=== PATIENT | male | born 1970 | race Caucasian/White ===

== ENCOUNTER → 2018-04-13 08:35 | Outpatient (CLI) | payer MEDICAID, SELFPAY ==
--- NOTE | 2018-04-13 08:30 | US_ITS ---
US abdomen limited History:Right upper quadrant pain Ordering Physician:Maikel Saleh MD Patient Age: 48 years Comparison:None Findings: Pancreas:Unremarkable. No obvious mass or abnormal fluid collection. No ductal dilatation Liver:No focal liver lesions demonstrated. Homogeneous echogenicity. No intrahepatic biliary ductal dilatation evident Right Kidney:Unremarkable. Normal size and echogenicity. No hydronephrosis Gallbladder:There is a gallstone noted. Gallbladder wall is slightly thickened at 4 mm. No pericholecystic fluid or biliary dilatation. Common bile duct is 5 mm. Impression: Cholelithiasis with mildly thickened gallbladder wall
== END ==
PROVIDERS: Family Provider Family Medicine; PCP Family Medicine; Visit Provider Family Medicine
DX: R19.7 Diarrhea, unspecified (principal); R10.11 Right upper quadrant pain
CPT/HCPCS: 76705

== ENCOUNTER → 2018-04-26 14:32 | Outpatient (CLI) | payer MEDICAID, SELFPAY | PROVIDERS: PCP Family Medicine; Visit Provider Surgery | DX: Z01.818 Encounter for other preprocedural examination (principal); K80.10 Calculus of gallbladder with chronic cholecystitis without obstruction | CPT/HCPCS: 93005 ==

== ENCOUNTER → 2019-06-22 11:58 | Outpatient (CLI) | payer MEDICAID, SELFPAY ==
[2019-06-22 12:01] LABS: Adenovirus F 40/41, stool Not Detected (NotDetected); Astrovirus Not Detected (NotDetected); Campylobacter Not Detected (NotDetected); Clostridium Difficile A/B, PCR Not Detected (NotDetected); Cryptosporidium Not Detected (NotDetected); Cyclospora Cayetanesis Not Detected (NotDetected); Entamoeba histolytica Not Detected (NotDetected); Enteroaggregative E coli Not Detected (NotDetected); Enteropathogenic E coli Not Detected (NotDetected); Enterotoxigenic E coli Not Detected (NotDetected); Norovirus Not Detected (NotDetected); Plesimonas Shigalloides, PCR Not Detected (NotDetected); Rotavirus A Not Detected (NotDetected); Salmonella, PCR Not Detected (NotDetected); Sapovirus Not Detected (NotDetected); Shiga-like toxin E coli Not Detected (NotDetected); Shigella Enterovasive E coli Not Detected (NotDetected); Vibrio Cholerae Not Detected (NotDetected); Vibrio, PCR Not Detected (NotDetected); Yersinia Entercolitica, PCR Not Detected (NotDetected)
[2019-06-22 15:39] LABS: Giardia lamblia Detected (NotDetected)
== END ==
PROVIDERS: Visit Provider Nurse Practitioner
DX: R19.7 Diarrhea, unspecified (principal); A07.1 Giardiasis [lambliasis]
CPT/HCPCS: 87507

== ENCOUNTER 2020-07-06 19:45 | Emergency (ER) | payer MEDICAID, SELFPAY ==
[2020-07-06 20:00] VITALS: BP 153/95; PULSE 80; RESP 16; TEMP 36.7; O2SAT 99; BMI 25.7
--- NOTE | 2020-07-06 20:31 | HMH.EDEYEP ---
ED Disposition Clinical Impression: Corneal FB (foreign body) Qualifiers: Encounter type: initial encounter Laterality: right Qualified Code(s): T15.01XA - Foreign body in cornea, right eye, initial encounter Disposition: Home, Self-Care Condition on Discharge: Good Instructions: DI for Eye Pain Additional Instructions: use meds and see dr torres for follo wup Referrals: Jb Palomino MD [Primary Care Provider] - - Critical Care Critical Care Time: No Attestation: On 07/06/20, the high probability of a clinically significant, sudden or life threatening deterioration of the following system(s) required my full and direct attention, intervention and personal management. The time I documented below is in addition to time spent performing reported procedures but includes the following listed in this critical care notation. Medical Decision Making - Medical Records Medical records reviewed: Yes: I reviewed the patient's medical records. - Zhen Inquiry Pt receiving controlled substance: No Vital Signs: 07/06/20 20:00 Temperature 98.0 F Temperature Source Oral Pulse Rate [Right] 80 Respiratory Rate 16 Blood Pressure [Right Arm] 153/95 H Blood Pressure Mean [Right Arm] 114 Blood Pressure Source [Right Arm] Automatic Cuff Blood Pressure Position [Right Arm] Supine 02 Sat by Pulse Oximetry 99 Oxygen Delivery Method Room Air - Physician Consults Physician Consulted: dr torres Reason -: Pt condition Eye Problem HPI - General Chief complaint: Eye Problems Stated complaint: Has something in right eye Time Seen by Provider: 07/06/20 20:15 Mode of Arrival: Ambulatory Source of Information: Patient, Spouse, Medical Record Limitations: No Limitations Description of Symptoms (Recalled from ER Triage Doc. by RN): Pt states he got an unknown object in his right eye on 07/04/2020, eye is red and irritated. - History of Present Illness HPI Narrative: rt eye pain with fb sensation over the last 2 days with photophobia - no visual loss chief complaint: eye pain, foreign body Onset (ago): day(s) Onset description: gradual Duration: constant Location: right eye Eye Symptoms: foreign body sensation Place: home Mechanism: none Severity: moderate Associated symptoms: none Treatments Prior to Arrival: irrigated eye - Related Data Patient tetanus UTD: Yes Home Medications Medication Instructions Recorded Confirmed Esomeprazole Magnesium [Nexium] 40 mg PO DAILY 04/22/18 05/16/18 Fenofibrate Nanocrystallized 145 tab PO DAILY 10/12/18 11/05/18 [Fenofibrate] Previous Rx's Medication Instructions Recorded cholestyramine (with sugar) 4 gram 4 g PO BID #60 each 06/28/18 powder for susp in a packet Ondansetron [Zofran 4mg ODT] 4 mg PO Q8HP PRN #20 tab.rapdis 06/22/19 Allergies Allergy/AdvReac Type Severity Reaction Status Date / Time codeine Allergy Intermediate Verified 05/16/18 14:10 [facility] History - Hepatitis A Screen Drug use history?: No High risk sexual behaviors?: No History of sexually transmitted infection?: No Currently employed?: No Childcare worker?: No Do you have indoor plumbing?: Yes Do you have electricity?: Yes Attestation statement:: This patient has been screened for Hepatitis A risk factors. I have reviewed the patient's past medical history: Yes Medical History: Denies:: Cancer, Diabetes Mellitus Type 1, Diabetes Mellitus Type 2, Internal Pacemaker, MRSA, Seizures Other Medical History: Denies: Blood Transfusion Reaction Other Surgeries: Yes: No Previous Surgery, Cholecystectomy. No: Pacemaker Amputation: No Fractures: Yes - Social History Smoking Status: Current every day smoker Tobacco Type: cigarettes # Packs/Day (cigarettes): 1 #Yrs smoked (if former smoker): 20 Alcohol Intake: current Alcohol Intake Frequency:: a few times a week Substance Use Type: denies use Occupational Status: employed Housing: house Household Members: spouse, chil
[2020-07-06 20:39] VITALS: BP 148/86; PULSE 82; RESP 16; TEMP 36.7; O2SAT 100
== END 2020-07-06 20:45 | disposition home or self-care (01) ==
PROVIDERS: Emergency Provider Emergency Medicine; PCP Family Medicine
DX: T15.01XA Foreign body in cornea, right eye, initial encounter (principal); F17.210 Nicotine dependence, cigarettes, uncomplicated
CPT/HCPCS: 99281